=== PATIENT | female | born 1940 | race Caucasian/White ===

== ENCOUNTER 2019-02-14 08:21 | Day surgery (SDC) | payer MEDICARE, BC ==
[2019-02-10 16:27] VITALS: BMI 31.7
[~2019-02-14 08:21] MED LIST: HEPARIN SODIUM,PORCINE 5,000 UNIT/ML 1 ML VIAL SQ ONE; LACTATED RINGERS 1,000 ML IV SCH; LIDOCAINE 1% 20 ML VIAL (10MG/ML) FOR IV START INTRADERMA PRN; MIDAZOLAM 2 MG/2 ML VIAL IV PRN; Pre Op ABX Message 1 EACH MISC MISCELLANE ONE; fentaNYL (PF) 50 MCG/ML 2 ML AMP IV PRN
[2019-02-14 09:18] VITALS: TEMP 98.1
--- NOTE | 2019-02-14 10:37 | P.GSHP ---
History of Present Illness H&P Date: 02/14/19 Chief Complaint: Ovarian cancer 78-year-old female here today for Port-A-Cath placement. Patient already has started her chemotherapy for recently diagnosed ovarian cancer. Next course of chemotherapy to start this . No previous ports in the past. Past Medical History Past Medical History: Cancer, Hyperlipidemia, Hypertension, Skin Disorder Additional Past Medical History / Comment(s): Ovarian CA 11/11/18, Peritoneal CA; Chemo tx started 01/27/19. Rash on hands this past week. 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 History of Any Multi-Drug Resistant Organisms: None Reported Past Surgical History: Tonsillectomy Additional Past Surgical History / Comment(s): D&C. Colonoscopy. Hysteroscopy & Peritoneal Bx 12/15/18. Past Anesthesia/Blood Transfusion Reactions: Previous Problems w/ Anesthesia Additional Past Anesthesia/Blood Transfusion Reaction / Comment(s): throat discomfort w/ generals. Smoking Status: Never smoker - Past Family History Mother Family Medical History: No Reported History Medications and Allergies Home Medications Medication Instructions Recorded Confirmed Type Acetaminophen [Tylenol Extra 500 mg PO DIRECTED PRN 02/10/19 02/10/19 History Strength] [place] 1,500 mg PO DAILY 02/10/19 02/10/19 History Allopurinol [Zyloprim] 100 mg PO DAILY 02/10/19 02/10/19 History Ascorbic Acid [Vitamin C] 1,000 mg PO DAILY 02/10/19 02/10/19 History Aspirin [Adult Low Dose Aspirin EC] 81 mg PO DAILY 02/10/19 02/10/19 History Biotin 5,000 mcg PO DAILY 02/10/19 02/10/19 History Calcium-Magnesium (Unknown Dos 2 tab PO DAILY 02/10/19 History Choleast/Akbar (Unknown Dose) 3 tbsp PO DAILY 02/10/19 History Cholecalciferol [Vitamin D3 (25 5,000 unit PO DAILY 02/10/19 02/10/19 History Mcg = 1000 Iu)] [employer] Supplement 1 tab PO DAILY 02/10/19 History Folic Acid 0.8 mg PO DAILY 02/10/19 02/10/19 History K2-Vitamin D3 (Unknown Dose) 1 tab PO DAILY 02/10/19 History Multivitamins, Thera [Multivitamin 1 tab PO DAILY 02/10/19 02/10/19 History (formulary)] Niacin [Niacin ER] 500 mg PO DAILY 02/10/19 02/10/19 History Olmesartan Medoxomil [Benicar] 40 mg PO HS 02/10/19 02/10/19 History [place]-3 Fatty Acids/Fish Oil [Fish 1 each PO DAILY 02/10/19 02/10/19 History Oil 1,000 mg Softgel] Selenomethionine 200 2 tbsp PO DAILY 02/10/19 History Ubidecarenone [Co Q-10] 100 mg PO DAILY 02/10/19 02/10/19 History Vitamin E (Dl,Tocopheryl Acet) 400 unit PO DAILY 02/10/19 02/10/19 History [Vitamin E] Red Yeast Rice (Unknown Dose) 3 tab PO DAILY 02/11/19 History Allergies Allergy/AdvReac Type Severity Reaction Status Date / Time No Known Allergies Allergy Verified 02/14/19 08:51 Surgical - Exam Vital Signs Temp Pulse Resp BP Pulse Ox 98.1 F 87 16 175/79 98 02/14/19 09:10 02/14/19 09:10 02/14/19 09:10 02/14/19 09:10 02/14/19 09:10 Physical exam: General: Well-developed, well-nourished HEENT: Normocephalic, sclerae nonicteric Abdomen: Nontender, nondistended Extremities: No edema Neuro: Alert and oriented Assessment and Plan (1) Ovarian cancer Narrative/Plan: Will proceed with Port-A-Cath placement at this time. Risks of bleeding, infection, DVT, pneumothorax, catheter malfunction, anesthesia related complications were discussed. The patient understands and wishes to proceed. Current Visit: Yes Status: Acute Code(s): C56.9 - MALIGNANT NEOPLASM OF UNSPECIFIED OVARY SNOMED Code(s): 116267243
[2019-02-14] MEDS ORDERED: MIDAZOLAM 2 MG/2 ML VIAL ONE (10:45)
[2019-02-14] MEDS ORDERED: LIDOCAINE 1% INJ 10MG/ML (20 ML MDV) ONE (10:45)
[2019-02-14] MEDS ORDERED: fentaNYL (PF) 50 MCG/ML 2 ML AMP ONE (10:45)
[2019-02-14] MEDS ORDERED: PROPOFOL 10 MG/ML 20 ML VIAL IV ONE (10:45)
[2019-02-14] MEDS ORDERED: SODIUM CHLORIDE 0.9% 100 ML with ceFAZolin 2,000 MG IV ONE ×2 (10:50)
[2019-02-14] MEDS ORDERED: LIDOCAINE (PF) 10 MG/ML 2 ML VIAL SQ ONE ×2 (11:09)
[2019-02-14] MEDS ORDERED: HEPARIN SODIUM,PORCINE 100 UNIT/ML 5 ML VIAL IV ONE ×2 (11:09)
[2019-02-14] MEDS ORDERED: HYDROcodone/APAP 5-325MG 1 EACH TAB PO PRN (11:34)
[2019-02-14] MEDS ORDERED: NALOXONE 0.4 MG/ML 1 ML VIAL IV PRN (11:34)
--- NOTE | 2019-02-14 11:35 | P.OP ---
Date of Procedure: 02/14/19 Procedure(s) Performed: PREOPERATIVE DIAGNOSIS: Ovarian cancer POSTOPERATIVE DIAGNOSIS: Same PROCEDURE: Port-A-Cath placement SURGEON: Rosibel EBL: Minimal ANESTHESIA: Sedation COMPLICATIONS: None OPERATIVE PROCEDURE: Patient was brought and placed on the operative table in the supine position. The patient was sedated per anesthesia that time. The chest and neck were prepped and draped in usual sterile fashion. The ultrasound probe was used to identify the location of the right internal jugular vein. The skin was localized with lidocaine. The Seldinger needle was advanced into the IJ under ultrasound guidance. The wire was advanced through the needle under fluoroscopic guidance into the superior vena cava. A port pocket was created in the right infraclavicular location. The catheter was tunneled from the wire entrance site to the port pocket. The port was then connected to the catheter. The dilator introducer was threaded over the guidewire. The guidewire and dilator were then removed. The catheter was advanced through the introducer and introducer was then removed. The tip was seen to be in the right atrial junction. Port was flushed with both saline and a Hep-Lock solution. There was good flow both in and out of the port. The port was sutured in underlying tissues using 3-0 silk sutures. The subcutaneous tissues were reapproximated using 3-0 Vicryl sutures and the skin at both locations using 4-0 Monocryl sutures. Skin glue and sterile dressings then applied. DISPOSITION: Stable to recovery room
[2019-02-14] MEDS ORDERED: HYDROcodone/APAP 5-325MG 1 EACH TAB PO ONE (12:05)
--- NOTE | 2019-02-14 12:05 | XR ---
EXAMINATION TYPE: XR chest 1V DATE OF EXAM: 02/14/2019 COMPARISON: None HISTORY: 78-year-old female port placement TECHNIQUE: Single frontal view of the chest is obtained. FINDINGS: Right anterior chest wall injection port with catheter tip at the SVC. Heart upper limits of normal in size. Mild elongation/ectasia of the thoracic aorta. Mild interstitial prominence has a chronic appearance. No consolidation, pneumothorax, or pleural effusion. IMPRESSION: 1. Right anterior chest wall injection port with catheter tip at the mid SVC. 2. No acute process seen.
[2019-02-14 12:12] VITALS: BP 186/76; PULSE 62; RESP 18
--- NOTE | 2019-02-14 12:33 | FL ---
EXAMINATION TYPE: FL guided central line placemt HISTORY: Fluoroscopy time Impression: 1. Fluoroscopy support provided to the referring physician. 8 Seconds provided.
== END 2019-02-14 12:39 | disposition home or self-care (01) ==
LOC: OR 08:21
PROVIDERS: ATTEND Surgery
DX: C56.1 Malignant neoplasm of right ovary (principal); Z79.82 Long term (current) use of aspirin; Z79.899 Other long term (current) drug therapy; Z80.3 Family history of malignant neoplasm of breast; Z92.21 Personal history of antineoplastic chemotherapy; I10 Essential (primary) hypertension; E78.5 Hyperlipidemia, unspecified; Z90.89 Acquired absence of other organs; Z98.890 Other specified postprocedural states
CPT/HCPCS: 77001; 71045; 36561; C1788; J2250; J2001 ×2; J1644; J1642; J0690; J3010; J2704